=== PATIENT | female | born 1955 | race Caucasian/White ===

== ENCOUNTER 2017-10-29 12:59 | Emergency (ER) | payer OTHER ==
[2017-10-29 13:45] LABS: KETONE, URINE AUTO RFX NEGATIVE (NEGATIVE); RBC, URINE AUTO RFX 3 /HPF (0-3); SPECIFIC GRAVITY UR AUTO RFX 1.001 (1.002-1.035); SQUAM EPITHELIAL CELL UR AURFX 0 /HPF (0-6)
[2017-10-29 13:54] LABS: LEUKOCYTE ESTERASE UR AUTO RFX 3+ (NEGATIVE); NITRITE, URINE AUTO RFX POSITIVE (NEGATIVE); WBC, URINE AUTO RFX 31 /HPF (0-3)
== END 2017-10-29 14:31 | disposition home or self-care (01) ==
LOC: M ED 12:59
DX: N30.90 Cystitis, unspecified without hematuria (principal); E11.9 Type 2 diabetes mellitus without complications; I10 Essential (primary) hypertension; E78.5 Hyperlipidemia, unspecified; Z79.899 Other long term (current) drug therapy; Z79.84 Long term (current) use of oral hypoglycemic drugs; F17.210 Nicotine dependence, cigarettes, uncomplicated
CPT/HCPCS: 81001

== ENCOUNTER 2019-08-25 13:08 | Emergency (ER) | payer OTHER ==
[~2019-08-25] VITALS: Ht 167.6 cm; Wt 88.9 kg
[2019-08-25 13:08] VITALS: BP 165/92
[~2019-08-25 13:08] MED LIST: ALPR1TAB3 PO; ATOR40TA75 PO; BRIN10TA4 PO; BUPR150T5 PO; GABA600T4 PO; LOSA100T50 PO; MACR100C43 PO; METF500T13 PO; QUET1TAB7 PO
[2019-08-25] MEDS ORDERED: POTA10CA32 PO (13:14)
[2019-08-25] MEDS ORDERED: HYDR25TAB PO (13:14)
[2019-08-25] MEDS ORDERED: HYDR1CAP25 PO (13:14)
[2019-08-25] MEDS ORDERED: LOSA100T50 PO (13:44)
[2019-08-25] MEDS ORDERED: NEUR600T PO (13:46)
[2019-08-25] MEDS ORDERED: HYDR-3363 PO (13:46)
== END 2019-08-25 14:01 | disposition home or self-care (01) ==
LOC: M ED 13:08
DX: Z76.0 Encounter for issue of repeat prescription (principal)